=== PATIENT | female | born 1990 | race Caucasian/White ===

== ENCOUNTER 2017-01-08 12:09 | Observation (INO) | payer SELFPAY ==
[~2017-01-08] VITALS: Ht 157.5 cm; Wt 55.0 kg
[~2017-01-08 12:09] MED LIST: CLIN150 PO; HYDR-3533 PO
[2017-01-08 12:10] VITALS: BP 146/82; PULSE 97; RESP 16; TEMP 98.8; O2SAT 98
--- NOTE | 2017-01-08 12:25 | PD ---
HPI Chief Complaint: Skin Problem Time Seen by Provider: 12:22 Travel History International Travel<30 days: No Contact w/Intl Traveler<30days: No Traveled to known affect area: No History of Present Illness HPI 26-year-old female came to the emergency room with history of right hand base of the thumb abscess. Patient says that she is an IV drug abuser and injected therefore days ago. That's when it started to swell up and get red. Last night the abscess popped and extremely foul-smelling discharge started to come out. No history of fever or chills. Patient has had an abscess in the past. Her vital signs are stable. Patient is complaining of pain of her right thumb. [facility] Past Medical History Narrative Medical List of her past medical, surgical, social and family history is reviewed from the nursing note Diminished Hearing: No Gastrointestinal Disorders: Yes (crohns disease) ?: Not LMP: 12/2016 Past Surgical History Tonsillectomy: Yes Social History Alcohol Use: No Tobacco Use: Yes (smokes a half a pack of cigarettes per day) Substance Use: No Allergies-Medications (Allergen,Severity, Reaction): Coded Allergies: morphine (Unverified Adverse Reaction, Intermediate, N/V-ITCHING, 01/10/17) Comments List of her allergies reviewed from the nursing note. Reported Meds & Prescriptions Reported Meds & Active Scripts Active Narrative Medication List of her home medications reviewed from the nursing note. Review of Systems Except as stated in HPI: all other systems reviewed are Neg Skin: Positive Other (right thumb abscess) Physical Exam Narrative GENERAL: Awake, alert, anxious, moderate distress SKIN: Focused skin assessment warm/dry. Right first CMC joint on the dorsal aspect the skin is left off and measures 2 x 2 centimeter. Extremely foul- smelling discharge with a black necrotic lesion at the bed. Surrounding area of the skin is erythematous, tender to touch and swollen. The thumb distally appears to be swollen and erythematous and tender. HEAD: Atraumatic. Normocephalic. EYES: Pupils equal and round. No scleral icterus. No injection or drainage. ENT: No nasal bleeding or discharge. Mucous membranes pink and moist. NECK: Trachea midline. No JVD. CARDIOVASCULAR: Regular rate and rhythm. No murmur appreciated. RESPIRATORY: No accessory muscle use. Clear to auscultation. Breath sounds equal bilaterally. GASTROINTESTINAL: Abdomen soft, non-tender, nondistended. Hepatic and splenic margins not palpable. MUSCULOSKELETAL: No obvious deformities. No clubbing. No cyanosis. No edema. NEUROLOGICAL: Awake and alert. No obvious cranial nerve deficits. Motor grossly within normal limits. Normal speech. PSYCHIATRIC: Appropriate mood and affect; insight and judgment normal. Data Data Last Documented VS Vital Signs Date Time Temp Pulse Resp B/P (MAP) Pulse Ox O2 Delivery O2 Flow Rate FiO2 01/08/17 14:43 79 16 125/83 (97) 98 Room Air 01/08/17 12:10 98.8 Orders Orders Basic Metabolic Panel (Bmp) (01/08/17 12:31) Complete Blood Count With Diff (01/08/17 12:31) Blood Culture (01/08/17 12:31) Wound Culture And Gram Stain (01/08/17 12:31) Iv Access Insert/Monitor (01/08/17 12:31) Vancomycin Inj (Vancomycin Inj) (01/08/17 12:45) Piperacil-Tazo 4.5 Gm Premix (Zosyn 4.5 (01/08/17 12:45) Sodium Chlor 0.9% 1000 Ml Inj (Ns 1000 M (01/08/17 12:45) Mri Hand W&W/O Contrast (01/08/17 ) Hand, Complete ([id number]) (01/08/17 ) NPO (01/08/17 13:02) Diphenhydramine Inj (Benadryl Inj) (01/08/17 14:04) Potassium Chloride (Kcl) (01/08/17 15:30) Gadodiamide Pf Inj (Omniscan Pf Inj) (01/08/17 15:30) Admit Order (Ed Use Only) (01/08/17 15:39) Labs Laboratory Tests Test 01/08/17 12:55 White Blood Count 9.9 TH/MM3 Red Blood Count 4.39 MIL/MM3 Hemoglobin 12.5 GM/DL Hematocrit 38.7 % Mean Corpuscular Volume 88.1 FL Mean Corpuscular Hemoglobin 28.5 PG Mean Corpuscular Hemoglobin Concent 32.4 % Red Cell Distribution Width 13.4 % Platelet Count 238 TH/MM3 Mean Platelet Volume 9.1 FL Neutrophils (%) (Auto) 65.2 % Lymphocytes (%) (Auto) 26.7 % Monocytes (%) (Auto) 4.9 % Eosinophils (%) (Auto) 2.7 % Basophils (%) (Auto) 0.5 % Neutrophils # (Auto) 6.5 TH/MM3 Lymphocytes # (Auto) 2.7 TH/MM3 Monocytes # (Auto) 0.5 TH/MM3 Eosinophils # (Auto) 0.3 TH/MM3 Basophils # (Auto) 0.1 TH/MM3 CBC Comment DIFF FINAL Differential Comment Blood Urea Nitrogen 8 MG/DL Creatinine 0.74 MG/DL Random Glucose 98 MG/DL Calcium Level 9.1 MG/DL Sodium Level 137 MEQ/L Potassium Level 3.1 MEQ/L Chloride Level 101 MEQ/L Carbon Dioxide Level 28.1 MEQ/L Anion Gap 8 MEQ/L Estimat Glomerular Filtration Rate 95 ML/MIN MDM Medical Screen Exam Complete: Yes Emergency Medical Condition: Yes Medical Record Reviewed: Yes Differential Diagnosis Osteomyelitis, abscess, gangrene Narrative Course 3:20 PM patient had wound culture collected from the discharge of the thumb. CBC and chemistry are within normal limits. I discussed the case with Dr. Morgan who is from hand surgery. Patient to be admitted medically, nothing by mouth and MRI of the hand. All this has been ordered. Awaiting for the hospitalist to call back. I've given her dose of Zosyn and vancomycin. I was told by the nurse that after the initial dose of the vancomycin patient started getting itchy and red. This could be from Yeison syndrome. She was given 50 mg of IV Benadryl. Diagnosis Diagnosis: Primary Impression: Infected hand Additional Impressions: IV drug abuse possible osteomyelitis Admitting Physician Requests: Observation Cristino Maria MD Jan 08, 2017 12:25
[2017-01-08] MEDS ORDERED: VANCOMYCIN INJ 1,000 MG in SODIUM CHLOR 0.9% 250 ML INJ 250 ML IV ONE (12:45)
[2017-01-08] MEDS ORDERED: SODIUM CHLOR 0.9% 1000 ML INJ 1,000 ML IV ONE (12:45)
[2017-01-08] MEDS ORDERED: PIPERACIL-TAZO 4.5 GM PREMIX 100 ML IV ONE (12:45)
[2017-01-08 13:22] LABS: AUTOMATED NEUTROPHIL # 6.5 TH/MM3 (1.8-7.7); BASOPHIL # 0.1 TH/MM3 (0-0.2); BASOPHIL % 0.5 % (0.0-2.0); EOSINOPHIL # 0.3 TH/MM3 (0-0.4); EOSINOPHIL % 2.7 % (0.0-4.0); HEMATOCRIT 38.7 % (35.0-46.0); HEMOGLOBIN 12.5 GM/DL (11.6-15.3); LYMPH % 26.7 % (9.0-44.0); LYMPHOCYTE # 2.7 TH/MM3 (1.0-4.8); MEAN CELL VOLUME 88.1 FL (80.0-100.0); MEAN CORPUSCULAR HEMOGLOBIN 28.5 PG (27.0-34.0); MEAN CORPUSCULAR HGB CONC 32.4 % (32.0-36.0); MEAN PLATELET VOLUME 9.1 FL (7.0-11.0); MONO % 4.9 % (0.0-8.0); MONOCYTE # 0.5 TH/MM3 (0-0.9); NEUT % 65.2 % (16.0-70.0); PLATELET COUNT 238 TH/MM3 (150-450); RED BLOOD COUNT 4.39 MIL/MM3 (4.00-5.30); RED CELL DISTRIBUTION WIDTH 13.4 % (11.6-17.2); WHITE BLOOD COUNT 9.9 TH/MM3 (4.0-11.0)
--- NOTE | 2017-01-08 13:35 | RADRPT ---
EXAM DATE/TIME: 01/08/2017 12:39 [facility] COMPARISON: No previous studies available for comparison. INDICATIONS : Pain, swelling, open abcess right hand. IV drug user MEDICAL HISTORY : None. SURGICAL HISTORY : None. ENCOUNTER: Initial ACUITY: 4 - 6 days PAIN SCORE: 8/10 LOCATION: Right Hand FINDINGS: Three view examination of the right hand demonstrates no dislocation, or fracture. There is soft tiss ue swelling at the base of the first finger. The carpal bones appear intact. The interphalangeal an d metacarpophalangeal joints are intact. Bony mineralization is normal. CONCLUSION: 1. Soft tissue swelling at the base of the first finger. 2. No acute fracture or joint dislocation. Galileo Moser MD on January 08, 2017 at 13:32 Board Certified Radiologist. This report was verified electronically.
[2017-01-08 13:39] LABS: BICARBONATE 28.1 MEQ/L (21.0-32.0); CALCIUM 9.1 MG/DL (8.5-10.1); CREATININE 0.74 MG/DL (0.50-1.00)
[2017-01-08] MEDS ORDERED: diphenhydrAMINE HCL 50 MG/ML VIAL ONE (14:04)
[2017-01-08 14:43] VITALS: BP 125/83; PULSE 79; RESP 16; O2SAT 98
[2017-01-08] MEDS ORDERED: GADODIAMIDE PF 287 MG/ML 10 ML VIAL (for RAD MRI) IVCONTRAST ONE (15:30)
[2017-01-08] MEDS ORDERED: POTASSIUM CHLORIDE 20 MEQ CONTROLLED RELEASE TAB PO ONE (15:30)
[2017-01-08] MEDS ORDERED: SODIUM CHLORIDE 0.9% FLUSH 10 ML FLUSH IV FLUSH PRN (15:45)
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
--- NOTE | 2017-01-08 15:53 | RADRPT ---
EXAM DATE/TIME: 01/08/2017 15:07 [facility] COMPARISON: HAND RIGHT COMPLETE ([id number]), January 08, 2017, 12:39. INDICATIONS : Osteomyelitis. Right thumb swelling. CONTRAST: 10 cc Omniscan (gadodiamide) IV MEDICAL HISTORY : Hepatitis C. Crohn's disease. IVDU. SURGICAL HISTORY : None. ENCOUNTER: Subsequent ACUITY: 4-6 days PAIN SCORE: 6/10 LOCATION: Right hand. TECHNIQUE: Multiplanar, multisequence MRI examination was performed without contrast and after the intravenous a dministration of gadolinium. FINDINGS: BONE/CARTILAGE: Bone marrow signal is homogeneous. No bone marrow edema is demonstrated. TENDONS: All of the visualized tendons are intact. MISCELLANEOUS: There is diffuse nonspecific soft tissue swelling in the tissues adjacent to the first metacarpal. No definite loculated fluid collection is seen. POST-CONTRAST: There are no abnormal areas of enhancement on the post-contrast images. CONCLUSION: 1. No evidence of osteomyelitis. 2. Diffuse nonspecific soft tissue swelling adjacent to the first metacarpal. Galileo Moser MD on January 08, 2017 at 15:41 Board Certified Radiologist. This report was verified electronically.
--- NOTE | 2017-01-08 15:53 | RADRPT ---
EXAM DATE/TIME: 01/08/2017 15:07 [facility] COMPARISON: HAND RIGHT COMPLETE ([id number]), January 08, 2017, 12:39. INDICATIONS : Osteomyelitis. Right thumb swelling. CONTRAST: 10 cc Omniscan (gadodiamide) IV MEDICAL HISTORY : Hepatitis C. Crohn's disease. IVDU. SURGICAL HISTORY : None. ENCOUNTER: Subsequent ACUITY: 4-6 days PAIN SCORE: 6/10 LOCATION: Right hand. TECHNIQUE: Multiplanar, multisequence MRI examination was performed without contrast and after the intravenous a dministration of gadolinium. FINDINGS: BONE/CARTILAGE: Bone marrow signal is homogeneous. No bone marrow edema is demonstrated. TENDONS: All of the visualized tendons are intact. MISCELLANEOUS: There is diffuse nonspecific soft tissue swelling in the tissues adjacent to the first metacarpal. No definite loculated fluid collection is seen. POST-CONTRAST: There are no abnormal areas of enhancement on the post-contrast images. CONCLUSION: 1. No evidence of osteomyelitis. 2. Diffuse nonspecific soft tissue swelling adjacent to the first metacarpal. Galileo Moser MD on January 08, 2017 at 15:41 Board Certified Radiologist. This report was verified electronically.
--- NOTE | 2017-01-08 15:53 | RADRPT ---
EXAM DATE/TIME: 01/08/2017 15:07 [facility] COMPARISON: HAND RIGHT COMPLETE ([id number]), January 08, 2017, 12:39. INDICATIONS : Osteomyelitis. Right thumb swelling. CONTRAST: 10 cc Omniscan (gadodiamide) IV MEDICAL HISTORY : Hepatitis C. Crohn's disease. IVDU. SURGICAL HISTORY : None. ENCOUNTER: Subsequent ACUITY: 4-6 days PAIN SCORE: 6/10 LOCATION: Right hand. TECHNIQUE: Multiplanar, multisequence MRI examination was performed without contrast and after the intravenous a dministration of gadolinium. FINDINGS: BONE/CARTILAGE: Bone marrow signal is homogeneous. No bone marrow edema is demonstrated. TENDONS: All of the visualized tendons are intact. MISCELLANEOUS: There is diffuse nonspecific soft tissue swelling in the tissues adjacent to the first metacarpal. No definite loculated fluid collection is seen. POST-CONTRAST: There are no abnormal areas of enhancement on the post-contrast images. CONCLUSION: 1. No evidence of osteomyelitis. 2. Diffuse nonspecific soft tissue swelling adjacent to the first metacarpal. Galileo Moser MD on January 08, 2017 at 15:41 Board Certified Radiologist. This report was verified electronically.
[2017-01-08] MEDS ORDERED: Vancomycin Consult Pharmacy 1 EA OTHER SCH (16:30)
[2017-01-08] MEDS ORDERED: oxyCODONE/ACETAMINOPHEN 5 MG/325 MG TAB PO PRN (16:30)
[2017-01-08] MEDS ORDERED: diphenhydrAMINE HCL 50 MG/ML VIAL IV PUSH PRN (16:30)
--- NOTE | 2017-01-08 16:48 | HHI.FPPN ---
Subjective Remarks Pt. seen, examined and discussed with Drs. Alexandra Jacobo, Iván Goodman and Alexandra Burden. This is a 26 yo female who injects dilaudid several times a day. A few days ago she injected dissolved oral dilaudid in water into a small vein over the dorsal aspect of her right thumb MP joint. She has increasing swelling , redness and pain. She came to ED but it was very busy so she went home and slept. The area developed a central dark discoloration and yesterday afternoon opened and drained malodorous secretions. The odor has made her have nausea and vomiting. The pain is quite significant. Denies fever or chills. She lives with boyfriend in [place], has two children who live with her. 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 Drinks etoh regularly. Denies any other illicits, but does smoke weed. Only surgery was T&A. Hx of crohn's disease, has no PCP. Please see H&P for this admission for additional historical details, including additional past, family and social history. Also ROS was reviewed with the patient and is as noted in the HPI. Objective Vitals Vital Signs Date Time Temp Pulse Resp B/P (MAP) Pulse Ox O2 Delivery O2 Flow Rate FiO2 01/08/17 14:43 79 16 125/83 (97) 98 Room Air 01/08/17 12:10 98.8 97 16 146/82 (103) 98 I/O 01/07/17 01/07/17 01/07/17 01/08/17 01/08/17 01/08/17 07:00 15:00 23:00 07:00 15:00 23:00 Intake Total 1100 ml 250 ml Balance 1100 ml 250 ml Intake IV Total 1100 ml 250 ml Result Diagram: 01/08/17 1255 01/08/17 1255 Other Results Laboratory Tests Test 01/08/17 12:55 White Blood Count 9.9 TH/MM3 Red Blood Count 4.39 MIL/MM3 Hemoglobin 12.5 GM/DL Hematocrit 38.7 % Mean Corpuscular Volume 88.1 FL Mean Corpuscular Hemoglobin 28.5 PG Mean Corpuscular Hemoglobin Concent 32.4 % Red Cell Distribution Width 13.4 % Platelet Count 238 TH/MM3 Mean Platelet Volume 9.1 FL Neutrophils (%) (Auto) 65.2 % Lymphocytes (%) (Auto) 26.7 % Monocytes (%) (Auto) 4.9 % Eosinophils (%) (Auto) 2.7 % Basophils (%) (Auto) 0.5 % Neutrophils # (Auto) 6.5 TH/MM3 Lymphocytes # (Auto) 2.7 TH/MM3 Monocytes # (Auto) 0.5 TH/MM3 Eosinophils # (Auto) 0.3 TH/MM3 Basophils # (Auto) 0.1 TH/MM3 CBC Comment DIFF FINAL Differential Comment Blood Urea Nitrogen 8 MG/DL Creatinine 0.74 MG/DL Random Glucose 98 MG/DL Calcium Level 9.1 MG/DL Sodium Level 137 MEQ/L Potassium Level 3.1 MEQ/L Chloride Level 101 MEQ/L Carbon Dioxide Level 28.1 MEQ/L Anion Gap 8 MEQ/L Estimat Glomerular Filtration Rate 95 ML/MIN Imaging Last 24 hours Impressions Hand X-Ray 01/08/17 0000 Signed Impressions: Service Date/Time: January 12:39 - CONCLUSION: 1. Soft tissue swelling at the base of the first finger. 2. No acute fracture or joint dislocation. Galileo Moser MD Objective Remarks O. CONSTITUTIONAL/GEN: normally nourished, in some distress due to pain and odor right hand. EYES: conjunctiva normal, PERRLA, EOMI. ENT: Mouth and pharynx normal. NECK: No thyromegaly. supple. LUNGS: clear A-P, respiratory effort is normal. CARDIOVASCULAR: RR without murmur or gallop. No significant edema. GI/ABD: soft without masses, without organomegaly. BS +. NEURO: No focal deficits. SKIN: color normal, has erythematous area mid volar right forearm (pt. says this is resolving). HEME/LYMPH: no bruising, petechia. Prominent right epitrochlear node palpable >1 cm. MUSC: back is normal in appearance. Dressing right hand; area with dark ( necrotic?) center surrounded by edema and erythema. Malodorous. PSYCH/MENTAL STATUS: Alert and oriented x 3. A/P Assessment and Plan Infection right thumb due to IV injection of dilaudid. Polysubstance abuse. Discharge Planning Consultation hand surgeon has romario placed. IV antibiotics. Pain management and careful observation for withdrawal. Attending Attestation Patient seen and examined. Case reviewed and discussed with the resident team. Agree with plan of care as discussed with me and documented in the resident note. Alyssa Alvares MD Jan 08, 2017 16:48
[2017-01-08 17:39] VITALS: BP 101/63; PULSE 65; RESP 20; TEMP 95.6; O2SAT 97
[2017-01-08] MEDS ORDERED: HYDROmorphone HCL PF 0.5 MG/0.5 ML SYRINGE IV PRN (17:45)
[2017-01-08] MEDS: SODIUM CHLOR 0.9% 1000 ML INJ 1,000 ML IV SCH (18:13)
[2017-01-08] MEDS: oxyCODONE/ACETAMINOPHEN 10 MG/325 MG TAB PO PRN (18:13)
[2017-01-08] MEDS ORDERED: diphenhydrAMINE HCL 50 MG/ML VIAL IV PUSH SCH (21:00)
[2017-01-08 22:10] VITALS: BP 99/61; PULSE 64; RESP 15; TEMP 98; O2SAT 99
[2017-01-09] MEDS: SODIUM CHLORIDE 0.9% FLUSH 10 ML FLUSH IV FLUSH SCH ×2 (00:15→09:00)
[2017-01-09] MEDS: PIPERACIL-TAZO 4.5 GM PREMIX 100 ML IV SCH ×3 (00:15→07:05)
[2017-01-09 01:23] VITALS: BP 107/62; PULSE 85; RESP 16; TEMP 98.2; O2SAT 98
[2017-01-09] MEDS ORDERED: diphenhydrAMINE HCL 50 MG/ML VIAL IV PUSH PRN (01:30)
[2017-01-09] MEDS ORDERED: VANCOMYCIN INJ 1,000 MG in SODIUM CHLOR 0.9% 250 ML INJ 250 ML IV SCH (02:00)
[2017-01-09] MEDS ORDERED: VANCOMYCIN 1,000 MG/NS 250 ML IV SCH ×2 (02:00)
[2017-01-09] MEDS: SODIUM CHLOR 0.9% 1000 ML INJ 1,000 ML IV SCH ×2 (04:00→07:03)
[2017-01-09 05:40] LABS: BASOPHIL # 0.1 TH/MM3 (0-0.2); BASOPHIL % 0.8 % (0.0-2.0); EOSINOPHIL # 0.3 TH/MM3 (0-0.4); EOSINOPHIL % 3.9 % (0.0-4.0); HEMATOCRIT 38.5 % (35.0-46.0); HEMOGLOBIN 12.5 GM/DL (11.6-15.3); LYMPHOCYTE # 2.3 TH/MM3 (1.0-4.8); MEAN CELL VOLUME 89.2 FL (80.0-100.0); MEAN CORPUSCULAR HGB CONC 32.5 % (32.0-36.0); MEAN PLATELET VOLUME 8.9 FL (7.0-11.0); MONO % 8.2 % (0.0-8.0); MONOCYTE # 0.6 TH/MM3 (0-0.9); NEUT % 55.1 % (16.0-70.0); PLATELET COUNT 196 TH/MM3 (150-450); RED BLOOD COUNT 4.32 MIL/MM3 (4.00-5.30); RED CELL DISTRIBUTION WIDTH 13.5 % (11.6-17.2); WHITE BLOOD COUNT 7.2 TH/MM3 (4.0-11.0)
[2017-01-09 06:17] VITALS: BP 102/68; PULSE 71; RESP 16; TEMP 98; O2SAT 100
[2017-01-09] MEDS: oxyCODONE/ACETAMINOPHEN 10 MG/325 MG TAB PO PRN (08:09)
[2017-01-09 09:06] VITALS: BP 102/63; PULSE 71; RESP 16; TEMP 98; O2SAT 100
[2017-01-09 10:42] LABS: ALKALINE PHOSPHATASE 96 U/L (45-117); ALT (GPT) 33 U/L (10-53); AST (GOT) 35 U/L (15-37); BICARBONATE 25.5 MEQ/L (21.0-32.0); BLOOD UREA NITROGEN 6 MG/DL (7-18); CALCIUM 8.5 MG/DL (8.5-10.1); CHLORIDE 107 MEQ/L (98-107); CREATININE 0.66 MG/DL (0.50-1.00); GLOMERULAR FILTRATION RATE 108 ML/MIN (>89); GLUCOSE,RANDOM 70 MG/DL (74-106); SODIUM (NA) 138 MEQ/L (136-145); TOTAL BILIRUBIN ADULT 0.4 MG/DL (0.2-1.0); TOTAL PROTEIN 7.1 GM/DL (6.4-8.2)
[2017-01-09 12:54] VITALS: BP 126/90; PULSE 75; RESP 18; TEMP 98.4; O2SAT 99
--- NOTE | 2017-01-09 13:41 | HHI.FPPN ---
Subjective Remarks Patient is still having pain in her right thumb area. Upset that she has not eaten anything since being hospitalized. Denies any fevers, chills, cough, or SOB. (Piero Burden MD, R3) Objective Vitals Vital Signs Date Time Temp Pulse Resp B/P (MAP) Pulse Ox O2 Delivery O2 Flow Rate FiO2 01/09/17 12:54 98.4 75 18 126/90 (102) 99 01/09/17 09:06 98.0 71 16 102/63 (76) 100 01/09/17 06:17 98.0 71 16 102/68 (79) 100 01/09/17 01:23 98.2 85 16 107/62 (77) 98 01/08/17 22:10 98.0 64 15 99/61 (74) 99 01/08/17 17:39 95.6 65 20 101/63 (76) 97 01/08/17 17:06 (97) 01/08/17 14:43 79 16 125/83 (97) 98 Room Air I/O 01/08/17 01/08/17 01/08/17 01/09/17 01/09/17 01/09/17 07:00 15:00 23:00 07:00 15:00 23:00 Intake Total 1100 ml 250 ml Balance 1100 ml 250 ml Intake IV Total 1100 ml 250 ml # Voids 2 2 # Bowel Movements 1 1 (Piero Burden MD, R3) Result Diagram: 01/09/17 0534 01/09/17 0930 Objective Remarks O. CONSTITUTIONAL/GEN: normally nourished, in some distress due to pain and odor right hand. EYES: conjunctiva normal, PERRLA, EOMI. ENT: Mouth and pharynx normal. NECK: No thyromegaly. supple. LUNGS: clear A-P, respiratory effort is normal. CARDIOVASCULAR: RR without murmur or gallop. No significant edema. GI/ABD: soft without masses, without organomegaly. BS +. NEURO: No focal deficits. SKIN: color normal, has erythematous area mid volar right forearm (pt. says this is resolving). HEME/LYMPH: no bruising, petechia. Prominent right epitrochlear node palpable >1 cm. MUSC: back is normal in appearance. Dressing right hand; area with dark ( necrotic?) center surrounded by edema and erythema. Malodorous. PSYCH/MENTAL STATUS: Alert and oriented x 3. (Piero Burden MD, R3) A/P Assessment and Plan Cherrie is a 26 y/o female with a PMHx of IVDU and Crohn's presenting with a right hand abscess. She will be admitted for IV antibiotics and possible debridement. Discharge Planning Consultation hand surgeon has romario placed. IV antibiotics. Pain management and careful observation for withdrawal. (Piero Burden MD, R3) Attending Attestation Patient seen and examined. Case reviewed and discussed with the resident team. Agree with plan of care as discussed with me and documented in the resident note. (Alyssa Alvares MD) Problem List: (1) Infected hand ICD Codes: L08.9 - Local infection of the skin and subcutaneous tissue, unspecified Status: Acute Plan: Right hand showing necrotic lesion as above. Will treat with IV antibiotics: * Vanc 1 g q 12 with pharmacy consult * Zosyn 4.5 q 8 hr to cover for gram negatives and anaerobes. IVF at maintenance NPO until evaluated by hand surgery; we appreciate their assistance in the care of Mrs. Villaseñor Blood cultures x 2 (no growth x 1 day), no signs of endocarditis at this time (2) IV drug abuse ICD Codes: F19.10 - Other psychoactive substance abuse, uncomplicated Status: Acute Plan: Will treat pain with: * Percocet 5-325 mg q 4 hr pain 1-5 * Percocet 10-325 mg q 4 hours pain 6-10 * DIlaudid 0.5 mg IV breakthrough pain Clonidine 0.1 mg q 4 hours withdrawal symptoms (HR > 60, BP > 100/60) (3) KATIE (red man syndrome) ICD Codes: L27.0 - Generalized skin eruption due to drugs and medicaments taken internally Plan: Patient experienced flushing, itchy after initiation of Vancomycin. Given 50 mg IV Benadryl. Resolved. Infusion rate was slowed. Infuse at 1/2 normal rate and pretreat with 50 mg IV benadryl 1 hours prior to vancomycin infusions. Scheduled. (4) Nutrition, metabolism, and development symptoms ICD Codes: R63.8 - Other symptoms and signs concerning food and fluid intake Plan: Fluids: NS at maintenence DVT ppx: Hold pending surgical eval, SCDs Nutrition: NPO GI ppx: Not indicated SDW Dr. Alyssa Alvares, Dr. Saniya Jacobo, and Dr. Nalini Goodman. (Piero Burden MD, R3) Problem List: (1) Infected hand ICD Codes: L08.9 - Local infection of the skin and subcutaneous tissue, unspecified Status: Acute Plan: Right hand showing necrotic lesion as above. Will treat with IV antibiotics: * Vanc 1 g q 12 with pharmacy consult * Zosyn 4.5 q 8 hr to cover for gram negatives and anaerobes. IVF at maintenance NPO until evaluated by hand surgery; we appreciate their assistance in the care of Mrs. Villaseñor Blood cultures x 2 (no growth x 1 day), no signs of endocarditis at this time (2) IV drug abuse ICD Codes: F19.10 - Other psychoactive substance abuse, uncomplicated Status: Acute Plan: Will treat pain with: * Percocet 5-325 mg q 4 hr pain 1-5 * Percocet 10-325 mg q 4 hours pain 6-10 * DIlaudid 0.5 mg IV breakthrough pain Clonidine 0.1 mg q 4 hours withdrawal symptoms (HR > 60, BP > 100/60) (3) KATIE (red man syndrome) ICD Codes: L27.0 - Generalized skin eruption due to drugs and medicaments taken internally Plan: Patient experienced flushing, itchy after initiation of Vancomycin. Given 50 mg IV Benadryl. Resolved. Infusion rate was slowed. Infuse at 1/2 normal rate and pretreat with 50 mg IV benadryl 1 hours prior to vancomycin infusions. Scheduled. (4) Nutrition, metabolism, and development symptoms ICD Codes: R63.8 - Other symptoms and signs concerning food and fluid intake Plan: Fluids: NS at maintenence DVT ppx: Hold pending surgical eval, SCDs Nutrition: NPO GI ppx: Not indicated SDW Dr. Alyssa Alvares and Dr. Nalini Goodman. (Alyssa Alvares MD) Piero Burden MD, R3 Jan 09, 2017 13:41 Alyssa Alvares MD Jan 09, 2017 14:18
[2017-01-09] MEDS ORDERED: ACETAMINOPHEN 1000 MG/100 ML 0 ML IV ONE (14:14)
[2017-01-09] MEDS ORDERED: BACITRACIN TOP OINT 15 GM TUBE ONE (14:25)
[2017-01-09] MEDS ORDERED: LIDOCAINE HCL 2% 50 ML VIAL ONE (14:25)
[2017-01-09] MEDS ORDERED: NEOMYCIN/POLYMYXIN 1 ML G.U. IRRIGANT ONE (14:29)
[2017-01-09] MEDS ORDERED: HYDROmorphone HCL PF 2 MG/ML VIAL ONE (14:46)
[2017-01-09 15:59] VITALS: BP 136/68; PULSE 70; RESP 18; TEMP 97.7; O2SAT 97
[2017-01-09 16:01] VITALS: BP_SYST 132; BP_SYST 148; BP_DIAS 65; BP_DIAS 69
--- NOTE | 2017-01-09 18:09 | PD.AMA ---
Against Medical Advice Note Discharge Disposition: Against Medical Advice AMA Statement Patient Cherrie Villaseñor has decided to leave the hospital against medical advice. Patient had already left when residents arrived at bedside. Per nursing report, this patient has the capacity to refuse care and understands the risks of leaving, including permanent disability and/or , and has had an opportunity to ask questions about her condition. The patient has been informed that she may return for care at any time, and follow up has been arranged/advised. Cherrie Rodriguez MD R1 Jan 09, 2017 18:09
[2017-01-10] MEDS ORDERED: PHARMACY ORDERED LAB ONE (13:45)
[2017-01-10] MEDS ORDERED: BACI500O9 TOPICAL (21:46)
[2017-01-10] MEDS ORDERED: CLIN300C5 PO (21:46)
== END 2017-01-09 18:09 | disposition left against medical advice (07) ==
LOC: NEPE 12:09 → NEDA 15:42 → NEPGCP 17:10
PROVIDERS: ADMIT Family Medicine; ATTEND Family Medicine
DX: L02.511 Cutaneous abscess of right hand (principal); B95.61 Methicillin susceptible Staphylococcus aureus infection as the cause of diseases classified elsewhere; F12.90 Cannabis use, unspecified, uncomplicated; F19.10 Other psychoactive substance abuse, uncomplicated; K50.90 Crohn's disease, unspecified, without complications; F17.210 Nicotine dependence, cigarettes, uncomplicated
CPT/HCPCS: 73130; 73220; 80048; 80053; 80307; 85025; 86403; 87040; 87070; 87185; 87186; 96361; 96365; 96366; 96367; 96375; 96376; 99285; A9579; G0378; J1200; J2543; J3370; J7030; J7050; J0131; J1170

== ENCOUNTER 2017-01-10 17:05 | Emergency (ER) | payer SELFPAY ==
[~2017-01-10] VITALS: Ht 157.5 cm; Wt 55.0 kg
[2017-01-10 17:21] VITALS: BP 113/72; PULSE 77; RESP 16; TEMP 98.9; O2SAT 98
[2017-01-10] MEDS ORDERED: CLINDAMYCIN 150 MG CAP PO ONE (20:45)
--- NOTE | 2017-01-10 21:41 | PD ---
HPI Chief Complaint: Skin Problem Time Seen by Provider: 19:13 Travel History International Travel<30 days: No Contact w/Intl Traveler<30days: No Traveled to known affect area: No History of Present Illness HPI pt was seen here 2 days ago and had hand infection that was draining and was admitted with hand surgey planned, sugery was delayed and she left AMA and now rerturns to follow up , I spoke to Dr Morgan who feels that this does not need surgery at this time MRI showed no osteo and I willevaluate and treat him with PO clindamycin PFSH Past Medical History Blood Disorders: No Anxiety: Yes Cancer: No Cardiovascular Problems: No Diminished Hearing: No Endocrine: No Gastrointestinal Disorders: Yes (crohns disease) Genitourinary: No Hepatitis: Yes ( hep c ) Musculoskeletal: No Neurologic: No Psychiatric: Yes Reproductive: No Respiratory: No Influenza Vaccination: No ?: Not LMP: 2 WEEKS AGO Past Surgical History Tonsillectomy: Yes Other Surgery: Yes (T&A) Social History Alcohol Use: Yes (occassionaly ) Tobacco Use: Yes (pack a day ) Substance Use: Yes (dilaudid ) Allergies-Medications (Allergen,Severity, Reaction): Coded Allergies: morphine (Unverified Adverse Reaction, Intermediate, N/V-ITCHING, 01/10/17) Reported Meds & Prescriptions Reported Meds & Active Scripts Active Bacitracin Topical 500 Unit/Gm Oint 1 Applic TOPICAL BID Clindamycin (Clindamycin HCl) 300 Mg Cap 300 Mg PO Q6H Review of Systems Except as stated in HPI: all other systems reviewed are Neg Skin: Positive Other (infected lateral aspect of right thumb ) Physical Exam Narrative GENERAL: SKIN: Warm and dry. 4 cm healing ulcerated skin infection without abscess on right thumb lateral aspect HEAD: Atraumatic. Normocephalic. EYES: Pupils equal and round. No scleral icterus. No injection or drainage. ENT: No nasal bleeding or discharge. Mucous membranes pink and moist. NECK: Trachea midline. No JVD. CARDIOVASCULAR: Regular rate and rhythm. RESPIRATORY: No accessory muscle use. Clear to auscultation. Breath sounds equal bilaterally. GASTROINTESTINAL: Abdomen soft, non-tender, nondistended. Hepatic and splenic margins not palpable. MUSCULOSKELETAL: Extremities without clubbing, cyanosis, or edema. No obvious deformities. NEUROLOGICAL: Awake and alert. No obvious cranial nerve deficits. Motor grossly within normal limits. Five out of 5 muscle strength in the arms and legs. Normal speech. PSYCHIATRIC: Appropriate mood and affect; insight and judgment normal. Data Data Last Documented VS Vital Signs Date Time Temp Pulse Resp B/P (MAP) Pulse Ox O2 Delivery O2 Flow Rate FiO2 01/10/17 22:01 01/10/17 17:21 98.9 77 16 98 Room Air Orders Orders Vascular Access Team Consult/P PRN (01/10/17 19:03) Clindamycin (Cleocin) (01/10/17 20:45) Ed Discharge Order (01/10/17 21:48) MDM Medical Decision Making Medical Screen Exam Complete: Yes Emergency Medical Condition: Yes Differential Diagnosis healing abscess vs acute abscess in need of I and D Narrative Course Clindamycin PO and spoke to Dr Morgan feel outpt with follow up in her office is indicated MRI was negative for Osteo RX for clinda and Bacitracin Diagnosis Primary Impression: Infected hand Referrals: Sheila Morgan MD Additional Instructions: Take all the antibiotics and follow up with calling DR Morgan officew to see if follow up is indicated return to ED if any signs or smell of worsening infection Scripts Bacitracin Topical (Bacitracin Topical) 500 Unit/Gm Oint 1 APPLIC TOPICAL BID for Infection, #30 GM 0 Refills Prov: Yuriy Miranda MD 01/10/17 Clindamycin (Clindamycin) 300 Mg Cap 300 MG PO Q6H for Infection, #40 CAP 0 Refills Prov: Yuriy Miranda MD 01/10/17 Yuriy Miranda MD Jan 10, 2017 21:41
[2017-01-10] MEDS ORDERED: BACI500O9 TOPICAL (21:46)
[2017-01-10] MEDS ORDERED: CLIN300C5 PO (21:46)
== END 2017-01-10 22:08 | disposition home or self-care (01) ==
LOC: NEPC 17:05
DX: L08.9 Local infection of the skin and subcutaneous tissue, unspecified (principal); Z72.0 Tobacco use
CPT/HCPCS: 99284

== ENCOUNTER 2017-05-07 14:11 | Emergency (ER) | payer SELFPAY ==
[~2017-05-07] VITALS: Ht 162.6 cm; Wt 60.0 kg
[~2017-05-07 14:11] MED LIST changes: +BACI500O9 TOPICAL; -CLIN150 PO; +CLIN300C5 PO; -HYDR-3533 PO
[2017-05-07 14:19] VITALS: BP 104/54; PULSE 72; RESP 18; TEMP 98.8; O2SAT 96
--- NOTE | 2017-05-07 14:42 | PD ---
HPI Chief Complaint: Abdominal Pain Time Seen by Provider: 14:42 Travel History International Travel<30 days: No Contact w/Intl Traveler<30days: No Traveled to known affect area: No History of Present Illness HPI 26 yo F c/o abdominal pain starting early in AM, severe, constant without radiation that resolved suddenly just prior to our discussion. no nausea or vomiting. she denies similar prior episodes. no abnormal vb/bd. no fever. no urinary complaint. pt states she is eager to leave in order to go to work and that she does not want to pursue any testing here. PFSH Past Medical History Blood Disorders: No Anxiety: Yes Cancer: No Cardiovascular Problems: No Diminished Hearing: No Endocrine: No Gastrointestinal Disorders: Yes (crohns disease) Genitourinary: No Hepatitis: Yes ( hep c ) Musculoskeletal: No Neurologic: No Psychiatric: Yes Reproductive: No Respiratory: No ?: Not Past Surgical History Tonsillectomy: Yes Other Surgery: Yes (T&A) Social History Alcohol Use: Yes (occassionaly ) Tobacco Use: Yes (pack a day ) Substance Use: Yes (dilaudid ) Allergies-Medications (Allergen,Severity, Reaction): Coded Allergies: morphine (Unverified Adverse Reaction, Intermediate, N/V-ITCHING, 05/07/17) Reported Meds & Prescriptions Reported Meds & Active Scripts Active Bacitracin Topical 500 Unit/Gm Oint 1 Applic TOPICAL BID Clindamycin (Clindamycin HCl) 300 Mg Cap 300 Mg PO Q6H Review of Systems Except as stated in HPI: all other systems reviewed are Neg Physical Exam Narrative GENERAL: 26 yo F, WNWD, ambulatory Vital Signs Date Time Temp Pulse Resp B/P (MAP) Pulse Ox O2 Delivery O2 Flow Rate FiO2 05/07/17 14:19 98.8 72 18 104/54 (71) 96 SKIN: Warm and dry. HEAD: Atraumatic. Normocephalic. EYES: Pupils equal and round. No scleral icterus. No injection or drainage. ENT: No nasal bleeding or discharge. Mucous membranes pink and moist. NECK: Trachea midline. No JVD. CARDIOVASCULAR: Regular rate and rhythm. RESPIRATORY: No accessory muscle use. Clear to auscultation. Breath sounds equal bilaterally. GASTROINTESTINAL: Soft. Minimal TTP LLQ. No TTP at mcburnery's point. negative pichardo's sign. MUSCULOSKELETAL: Extremities without clubbing, cyanosis, or edema. No obvious deformities. NEUROLOGICAL: Awake and alert. No obvious cranial nerve deficits. Motor grossly within normal limits. Five out of 5 muscle strength in the arms and legs. Normal speech. PSYCHIATRIC: Appropriate mood and affect; insight and judgment normal. Data Data Last Documented VS Vital Signs Date Time Temp Pulse Resp B/P (MAP) Pulse Ox O2 Delivery O2 Flow Rate FiO2 05/07/17 14:19 98.8 72 18 104/54 (71) 96 Orders Orders Ed Discharge Order (05/07/17 14:42) MDM Medical Decision Making Medical Screen Exam Complete: Yes Emergency Medical Condition: Yes Differential Diagnosis uti, torsion, ov cyst, menstrual cramp, diverticulitis, appendicitis, std Narrative Course pt reports resolution of pain at the time of my assessment still i worry a large cyst, intermittent torsion, toa, std, uti, iup, etc pt insists on leaving she is willing to sign ama and understands she can return and in fact has assured she will return after work tonight she understands interval deterioration in her clinical status may come to pass and for that reason ama is indicated pt demonstrates competence for informed independent diecision making Diagnosis Primary Impression: Left against medical advice Med/Other Pt SpecificInfo: No Change to Meds Disposition: 07 AGAINST MEDICAL ADVICE Condition: Stable Brian Sears MD May 07, 2017 14:42
== END 2017-05-07 14:44 | disposition left against medical advice (07) ==
LOC: NEDAMB 14:11
DX: R10.9 Unspecified abdominal pain (principal); Z72.0 Tobacco use
CPT/HCPCS: 99281